=== PATIENT | female | born 1950 | race African-American/Black ===

== ENCOUNTER 2017-10-07 16:13 | Emergency (ER) | payer MEDICARE, MEDICAID ==
[~2017-10-07] VITALS: Ht 160 cm; Wt 82.6 kg
[~2017-10-07 16:13] MED LIST: AMLODIPINE BESYL5 MG PO; ASPIRIN81 M2 PO; ASPRIMOX 325 M325 MG; CLONAZEPAM 0.50.5 M1; DOXYCYCLINE 10100 MG PO; HUMALOG100 UNIT/1 SQ; HYDROXYZINE HCL25 M1 PO; KLOR-CON 1010 MEQ PO; LANTUS SUBQ; LASIX 20 MG TAB20 MG PO; LISINOPRIL20 MG PO; LYRICA 75 MG CA75 MG PO; MELOXICAM15 MG PO; METFORMIN HCL500 MG PO; NAMENDA 10 MG T10 MG PO; OXYCODONE HCL-1 EAC1 PO; PLAVIX 75 MG TA75 M1 PO; PREDNISONE 20 M20 M1 PO; ZANAFLEX4 MG PO; ZOCOR20 MG PO
[2017-10-07] MEDS ORDERED: LEVEMIR SUBQ (16:29)
[2017-10-07] MEDS ORDERED: ZOCOR20 MG PO (16:29)
[2017-10-07] MEDS ORDERED: COZAAR 50 MG TA50 M2 PO (16:30)
[2017-10-07] MEDS ORDERED: IRON325 PO (16:31)
[2017-10-07] MEDS ORDERED: AMLODIPINE BESYL5 MG PO (16:31)
[2017-10-07] MEDS ORDERED: FLONASE 0.05%50 MCG NASAL (16:31)
[2017-10-07 17:38] LABS: URINE BILIRUBIN NEGATIVE (Negative); URINE BLOOD NEGATIVE (Negative); URINE CLARITY CLEAR; URINE COLOR YELLOW; URINE GLUCOSE-RANDOM 1+ (Negative); URINE KETONES NEGATIVE (Negative); URINE LEUKOCYTES-REFLEX NEGATIVE (Negative); URINE NITRITE-REFLEX NEGATIVE (Negative); URINE PROTEIN NEGATIVE (Negative); URINE SPECIFIC GRAVITY 1.025 (1.005-1.030); URINE UROBILINOGEN 0.2 E.U./dl (0.2-1.0)
[2017-10-07 17:54] LABS: ABSOLUTE EOSINOPHILS 0.1 thou/uL (0.0-0.7); ABSOLUTE LYMPHOCYTES 1.4 thou/uL (0.8-5.3); ABSOLUTE MONOCYTES 0.4 thou/uL (0.0-1.2); ABSOLUTE NEUTROPHILS 3.8 thou/uL (1.6-8.1); BASOPHILS 0.4 %; EOSINOPHILS 1.1 %; HEMATOCRIT 33.4 % (37.0-47.0); HEMOGLOBIN 11.3 gm/dL (12.0-15.0); LYMPHOCYTES 24.5 %; MCH 32.3 pg (26.0-34.0); MCV 95.1 fL (80.0-100.0); MONOCYTES 7.1 %; MPV 8.5 fl. (7.2-11.1); NUCLEATED RBCS 0 /100WBC; PLATELET COUNT* 199 thou/uL (150-400); POLYS 66.9 %; RBC 3.51 mil/uL (4.20-5.00); RDW-CV 12.2 % (10.5-14.5); WBC 5.7 thou/uL (4.0-11.0)
[2017-10-07 18:06] LABS: ANION GAP 4 mmol/L (7-16); BUN 12 mg/dL (7-18); CALCIUM 9.4 mg/dL (8.5-10.1); CHLORIDE 106 mmol/L (98-107); CO2 29 mmol/L (21-32); CREATININE 0.9 mg/dL (0.6-1.3); GLUCOSE 260 mg/dL (70-99); POTASSIUM 4.3 mmol/L (3.5-5.1); SODIUM 139 mmol/L (136-145)
[2017-10-07 18:11] LABS: ALBUMIN 3.5 g/dL (3.4-5.0); ALKALINE PHOSPHATASE 87 U/L (46-116); SGOT 19 U/L (15-37); SGPT 23 U/L (30-65); TOTAL BILIRUBIN 0.4 mg/dL (<0.1-1.0); TOTAL PROTEIN 7.3 g/dL (6.4-8.2); TROPONIN-I LEVEL <0.06 ng/mL (<0.06)
[2017-10-07 18:20] VITALS: BP 122/59
--- NOTE | 2017-10-08 14:31 | EKG ---
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 <ELECTRONICALLY SIGNED> By: Phil Samano MD, FAC 10/08/17 1431 1716 1716 Phil Samano MD, FAC /EPI
== END 2017-10-07 18:21 | disposition home or self-care (01) ==
LOC: M.ERS 16:13
PROVIDERS: Physician Assistant
DX: R10.9 Unspecified abdominal pain (principal); R53.1 Weakness; R07.9 Chest pain, unspecified; G89.29 Other chronic pain; M54.9 Dorsalgia, unspecified; I10 Essential (primary) hypertension; E11.9 Type 2 diabetes mellitus without complications; F32.9 Major depressive disorder, single episode, unspecified; F41.9 Anxiety disorder, unspecified; Z88.4 Allergy status to anesthetic agent; Z88.8 Allergy status to other drugs, medicaments and biological substances; Z79.4 Long term (current) use of insulin

== ENCOUNTER 2018-01-04 18:38 | Emergency (ER) | payer MEDICARE, MEDICAID ==
[~2018-01-04] VITALS: Ht 160 cm; Wt 80.7 kg
[~2018-01-04 18:38] MED LIST changes: +COZAAR 50 MG TA50 M2 PO; +FLONASE 0.05%50 MCG NASAL; +IRON325 PO; +LEVEMIR SUBQ
[2018-01-04] MEDS ORDERED: JARDIANCE10 MG PO (18:50)
[2018-01-04 18:59] LABS: ABSOLUTE EOSINOPHILS 0.1 thou/uL (0.0-0.7); ABSOLUTE LYMPHOCYTES 1.2 thou/uL (0.8-5.3); ABSOLUTE MONOCYTES 0.3 thou/uL (0.0-1.2); ABSOLUTE NEUTROPHILS 4.1 thou/uL (1.6-8.1); BASOPHILS 0.5 %; EOSINOPHILS 0.9 %; HEMATOCRIT 36.2 % (37.0-47.0); LYMPHOCYTES 21.5 %; MCH 31.4 pg (26.0-34.0); MCV 95.1 fL (80.0-100.0); MPV 8.5 fl. (7.2-11.1); NUCLEATED RBCS 0 /100WBC; PLATELET COUNT* 202 thou/uL (150-400); POLYS 71.1 %; RDW-CV 12.1 % (10.5-14.5); WBC 5.7 thou/uL (4.0-11.0)
[2018-01-04 19:07] LABS: ANION GAP 5 mmol/L (7-16); BUN 14 mg/dL (7-18); CALCIUM 8.6 mg/dL (8.5-10.1); CHLORIDE 106 mmol/L (98-107); CO2 28 mmol/L (21-32); CREATININE 1.4 mg/dL (0.6-1.3); GLUCOSE 273 mg/dL (70-99); POTASSIUM 4.1 mmol/L (3.5-5.1); SODIUM 139 mmol/L (136-145)
[2018-01-04 19:14] LABS: ALBUMIN 3.5 g/dL (3.4-5.0); ALKALINE PHOSPHATASE 73 U/L (46-116); SGOT 19 U/L (15-37); SGPT 22 U/L (30-65); TOTAL BILIRUBIN 0.8 mg/dL (<0.1-1.0); TOTAL PROTEIN 7.1 g/dL (6.4-8.2); TROPONIN-I LEVEL <0.06 ng/mL (<0.06)
[2018-01-04 19:35] LABS: URINE BILIRUBIN NEGATIVE (Negative); URINE BLOOD NEGATIVE (Negative); URINE CLARITY CLEAR; URINE COLOR YELLOW; URINE GLUCOSE-RANDOM 3+ (Negative); URINE KETONES NEGATIVE (Negative); URINE LEUKOCYTES-REFLEX NEGATIVE (Negative); URINE NITRITE-REFLEX NEGATIVE (Negative); URINE PROTEIN NEGATIVE (Negative); URINE UROBILINOGEN 0.2 E.U./dl (0.2-1.0)
[2018-01-04] MEDS ORDERED: PREDNISONE 20 M20 MG PO (20:29)
[2018-01-04 21:26] VITALS: BP 139/55
--- NOTE | 2018-01-05 11:37 | EKG ---
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: : 1950 Requested By: Sherry Fontana Order Number: [id number] MD: Phil Samano Measurements Intervals [place] Rate: 65 P: [place]: 168 QRS: 21 QRSD: 90 T: 195 QT: 405 QTc: 422 Interpretive Statements Atrial-paced complexes Anteroseptal infarct, old Abnormal T, consider ischemia, diffuse leads Compared to ECG 10/07/2017 17:16:27 Myocardial infarct finding now present Intraventricular conduction delay no longer present T-wave abnormality still present Possible ischemia still present Electronically Signed On 01-05-2018 11:37:18 CDT by Phil Samano [email or web address] <ELECTRONICALLY SIGNED> By: Phil Samano MD, FACC 01/05/18 1137 46 46 Phil Samano MD, FAC /EPI
== END 2018-01-04 21:27 | disposition home or self-care (01) ==
LOC: M.ERS 18:38
PROVIDERS: Nurse Practitioner Family
DX: R42 Dizziness and giddiness (principal); R51 Headache; I10 Essential (primary) hypertension; E11.9 Type 2 diabetes mellitus without complications; F41.9 Anxiety disorder, unspecified; G89.29 Other chronic pain; M54.9 Dorsalgia, unspecified; F32.9 Major depressive disorder, single episode, unspecified; Z88.8 Allergy status to other drugs, medicaments and biological substances

== ENCOUNTER 2018-08-19 23:11 | Observation (INO) | payer MEDICARE, MEDICAID ==
[~2018-08-19] VITALS: Ht 160 cm; Wt 76.7 kg
[~2018-08-19 23:11] MED LIST changes: +COZAAR 50 MG TA50 M1 PO; -COZAAR 50 MG TA50 M2 PO; -HUMALOG100 UNIT/1 SQ; +HUMALOG100 UNIT/1 SUBQ; +JARDIANCE10 MG PO; +NORVASC5 MG PO; +PREDNISONE 20 M20 MG PO
[2018-08-19 23:16] VITALS: BP 136/61
[2018-08-19 23:42] LABS: ABSOLUTE EOSINOPHILS 0.1 thou/uL (0.0-0.7); ABSOLUTE LYMPHOCYTES 1.6 thou/uL (0.8-5.3); ABSOLUTE MONOCYTES 0.4 thou/uL (0.0-1.2); ABSOLUTE NEUTROPHILS 3.1 thou/uL (1.6-8.1); BASOPHILS 0.5 %; EOSINOPHILS 1.9 %; HEMATOCRIT 29.9 % (37.0-47.0); HEMOGLOBIN 10.2 gm/dL (12.0-15.0); LYMPHOCYTES 30.2 %; MCH 32.3 pg (26.0-34.0); MCHC 34.3 g/dL (28.0-37.0); MCV 94.1 fL (80.0-100.0); MONOCYTES 8.1 %; MPV 8.2 fl. (7.2-11.1); NUCLEATED RBCS 0 /100WBC; PLATELET COUNT* 192 thou/uL (150-400); POLYS 59.3 %; RBC 3.18 mil/uL (4.20-5.00); RDW-CV 12.2 % (10.5-14.5); WBC 5.2 thou/uL (4.0-11.0)
[2018-08-19 23:50] LABS: ANION GAP 7 mmol/L (7-16); BUN 22 mg/dL (7-18); CALCIUM 8.5 mg/dL (8.5-10.1); CHLORIDE 107 mmol/L (98-107); CO2 27 mmol/L (21-32); CREATININE 2.1 mg/dL (0.6-1.3); GLUCOSE 159 mg/dL (70-99); POTASSIUM 4.9 mmol/L (3.5-5.1); SODIUM 141 mmol/L (136-145)
[2018-08-19] MEDS ORDERED: MIRALAX17 GM PO (23:51)
[2018-08-19] MEDS ORDERED: PERCOCET 10-321 EACH PO (23:52)
[2018-08-19] MEDS ORDERED: VITAMIN D32000 UNI1 PO (23:52)
[2018-08-19] MEDS ORDERED: HUMALOG KW100 UNIT/1 SUBQ (23:52)
[2018-08-19] MEDS ORDERED: PLAVIX 75 MG TA75 M1 PO (23:52)
[2018-08-19] MEDS ORDERED: XANAX 0.5 MG0.5 M1 PO (23:53)
[2018-08-20] VITALS (9 sets, daily range): BP systolic 101–137; BP diastolic 46–85
[2018-08-20] LABS: ALBUMIN 3.4 g/dL (3.4-5.0); ALKALINE PHOSPHATASE 68 U/L (46-116); SGOT 22 U/L (15-37); SGPT 21 U/L (30-65); TOTAL BILIRUBIN 0.5 mg/dL (<0.1-1.0); TOTAL PROTEIN 7.1 g/dL (6.4-8.2); TROPONIN-I LEVEL <0.06 ng/mL (<0.06)
--- NOTE | 2018-08-20 04:16 | NUR ---
RECEIVED REPORT FROM CLERICAL SUPERVISOR AND ASSUMED CARE OF PATIENT APPROX 0215. ADMISSION HISTORY AND ASSESSMENT COMPLETED CHARTED. VSS ON ROOM AIR. LEFT FOOT PEDAL PULSE PRESENT WITH DOPPLER. PATIENT STATES SHE HAS VASCULAR ISSUES WITH HX OF RIGHT LEG STENT AND BYPASS. SHE STATES SHE HAS APPT FOR VASCULAR SURGERY ON 08/28 BUT DOES NOT WANT TO HAVE THE SURGERY UNTIL ISSUES WITH HER BP AND RENAL FUNCTION IS RESOLVED. PATIENT DENIES BEING LIGHTHEADED AT THIS TIME. PATIENT EDUCATED ON FALL PRECAUTIONS AND PRECAUTIONS IMPLEMENTED. PATIENT HAS C/O BACK PAIN WHICH IS CHRONIC. ENCOURAGED REPOSITIONING AND RELAXATION TECHNIQUES AND IBUPROFEN. PATIENT REFUSED IBUPROFEN BECAUSE IT MAKES HER STOMACH UPSET. PHYSICIAN PAGED AND ORDERS OBTAINED FOR HOME DOSE OF OXYCODONE. PENDING PHARMACY VERIFICATION AT THIS TIME. WILL ADMINISTER ONCE IMPROVED. GOAL FOR THIS SHIFT IF BLOOD PRESSURE MAINTAINANCE, RELIEF OF BACK PAIN, AND REMAIN FREE OF FALLS. CALL LIGHT WITHIN REACH
[2018-08-20] MEDS ORDERED: IRON325 PO (04:45)
[2018-08-20] MEDS ORDERED: SYSTANE 0.3-0.1 EACH OPHTHALMIC (04:46)
[2018-08-20] MEDS ORDERED: BYDUREON P2 MG/0.65 SUBQ (04:47)
[2018-08-20] MEDS ORDERED: NAPROSYN500 MG PO (04:48)
[2018-08-20 08:03] LABS: URINE BILIRUBIN NEGATIVE (Negative); URINE BLOOD NEGATIVE (Negative); URINE CLARITY CLEAR; URINE COLOR YELLOW; URINE GLUCOSE-RANDOM 1+ (Negative); URINE KETONES NEGATIVE (Negative); URINE LEUKOCYTES-REFLEX NEGATIVE (Negative); URINE NITRITE-REFLEX NEGATIVE (Negative); URINE PROTEIN NEGATIVE (Negative); URINE SPECIFIC GRAVITY <= 1.005 (1.005-1.030); URINE UROBILINOGEN 0.2 E.U./dl (0.2-1.0)
--- NOTE | 2018-08-20 08:27 | NUR ---
ASSUMED CARE OF PT THIS AM AROUND 0715- RELEASE ENGINEER IN PLACE ORDERED, TRACING A-PACED- UPON ASSESSMENT PT NOTED TO BE RESTING IN BED, WATCHING TV- PT A&O X4- CONTINENT OF BOWEL AND BLADDER- SBA WITH TRANSFERS FOR SAFETY- COURSE LUNG SOUNDS, RESP EVEN AND UN-LABORED- VSS, O2 SAT 95% ON RA- ABD SOFT/ROUND/NON-TENDER, BS X4 QUADS- PT REPORTS LAST BM 08/19/18- IV NOTED TO LEFT AC INTACT, IVF INFUSSING PRESCIBED- GOOD PO INTAKE NOTED THIS AM WITH BREAKFAST, BS MONITORED; INSULIN PRESCIBED- PT DENIES ANY C/O PAIN/DISCOMFORT AT THIS TIME- CALL LIGHT AND PERSONAL BELONGINGS WITH IN REACH- HOURLY ROUNDS IN PLACE R/T SAFETY/NEEDS- ALL NEEDS MET AT THIS TIME-WCTM
[2018-08-20 09:43] LABS: CALCIUM 8.4 mg/dL (8.5-10.1); CREATININE 1.3 mg/dL (0.6-1.3); MAGNESIUM 2.1 mg/dL (1.8-2.4)
--- NOTE | 2018-08-20 13:21 | EKG ---
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: SERGIO : 1950 Requested By: Susanne De La Cruz Order Number: [id number] MD: Daryl Delarosa Measurements Intervals [place] Rate: 67 P: [place]: 116 QRS: 33 QRSD: 109 T: 220 QT: 441 QTc: 466 Interpretive Statements Atrial-paced complexes Nonspecific T abnormalities, diffuse leads Compared to ECG 01/04/2018 18:47:52 Myocardial infarct finding no longer present T-wave abnormality still present Electronically Signed On 08-20-2018 13:20:54 CDT by Daryl Delarosa [email or web address] <ELECTRONICALLY SIGNED> By: Daryl Delarosa MD, [facility] 08/20/18 1320 0002 0002 Daryl Delarosa MD, [facility] /EPI
--- NOTE | 2018-08-20 16:25 | NUR ---
PT CURRENTLY RESTING IN BED- CARPET RENOVATOR IN PLACE ORDERED, TRACING A-PACED- IV TO LEFT AC INTACT, IVF INFUSSING PRESCIBED- GOOD PO INTAKE NOTED THIS SHIFT WITH MEALS- BS MONITORED ORDERED, ADVANCED TO MODERATE DOSE SSI INDICATED THIS SHIFT- LOSARTAN AND NORVASC NOTED TO BE D/C'D THIS SHIFT- PT DENIES ANY C/O PAIN/DISCOMFORT AT THIS TIME- MAKES NEEDS KNOWN- ALL NEEDS MET AT THIS TIME-WCTM
--- NOTE | 2018-08-21 00:39 | NUR ---
PT EXPRESSED CONCERNS THAT HER LANTUS DOSE AT HOME IS 40 UNITS/DAY, SHE WAS GIVEN 30 UNITS LAST NIGHT AND REQUESTED THE DOSE BE CHANGED, THIS NURSE SPOKE WITH DR MCHUGH VIA TELEPHONE AND RECEIVED NEW ORDERS TO CHANGE LANTUS DOSE TO MATCH PTS HOME DOSE, CHANGES MADE TO MEDICATION RECONCILIATION WELL
[2018-08-21 04:00] VITALS: BP 122/58
[2018-08-21 04:25] LABS: CALCIUM 9.1 mg/dL (8.5-10.1); CREATININE 0.9 mg/dL (0.6-1.3); MAGNESIUM 2.1 mg/dL (1.8-2.4); POTASSIUM 4.3 mmol/L (3.5-5.1)
[2018-08-21 07:20] VITALS: BP 129/55
[2018-08-21] MEDS ORDERED: AZITHROMYCIN 2250 MG PO (10:20)
--- NOTE | 2018-08-21 10:40 | NUR ---
Pt is A&O. Resides at home alone. Active and independent. No DME. Hx of HH, does not recall with which agency. No hx of SNF. Goal is home at dc. Pt states that she thinks she will dc today. No needs anticipated.
[2018-08-21 11:34] VITALS: BP 143/76
[2018-08-21 12:27] VITALS: BP 143/76
== END 2018-08-21 12:54 | disposition home or self-care (01) ==
LOC: M.ERS 23:11 → M.2W 08-20 00:40 → M.TBA-ER 08-20 00:40 → M.2W 08-20 00:40
PROVIDERS: Emergency Medicine; Internal Medicine; ADMIT Internal Medicine
DX: I95.2 Hypotension due to drugs (principal); N17.0 Acute kidney failure with tubular necrosis; I12.9 Hypertensive chronic kidney disease with stage 1 through stage 4 chronic kidney disease, or unspecified chronic kidney disease; N18.3 Chronic kidney disease, stage 3 (moderate); E11.22 Type 2 diabetes mellitus with diabetic chronic kidney disease; I99.8 Other disorder of circulatory system; E11.51 Type 2 diabetes mellitus with diabetic peripheral angiopathy without gangrene; M54.9 Dorsalgia, unspecified; G89.29 Other chronic pain; F32.9 Major depressive disorder, single episode, unspecified; F41.1 Generalized anxiety disorder; Z95.0 Presence of cardiac pacemaker; Z79.4 Long term (current) use of insulin; Z98.51 Tubal ligation status; Z53.33 Arthroscopic surgical procedure converted to open procedure; Z98.890 Other specified postprocedural states; Z87.891 Personal history of nicotine dependence

== ENCOUNTER 2018-12-08 16:20 | Emergency (ER) | payer MEDICARE, MEDICAID ==
[~2018-12-08] VITALS: Ht 160 cm; Wt 73.5 kg
[~2018-12-08 16:20] MED LIST changes: +AZITHROMYCIN 2250 MG PO; +BYDUREON P2 MG/0.65 SUBQ; +HUMALOG KW100 UNIT/1 SUBQ; +MIRALAX17 GM PO; +NAPROSYN500 MG PO; +PERCOCET 10-321 EACH PO; +SYSTANE 0.3-0.1 EACH OPHTHALMIC; +VITAMIN D32000 UNI1 PO; +XANAX 0.5 MG0.5 M1 PO
[2018-12-08 17:08] LABS: ABSOLUTE EOSINOPHILS 0.1 thou/uL (0.0-0.7); ABSOLUTE LYMPHOCYTES 1.5 thou/uL (0.8-5.3); ABSOLUTE MONOCYTES 0.4 thou/uL (0.0-1.2); ABSOLUTE NEUTROPHILS 5.1 thou/uL (1.6-8.1); BASOPHILS 0.7 %; EOSINOPHILS 1.1 %; HEMATOCRIT 31.2 % (37.0-47.0); HEMOGLOBIN 10.4 gm/dL (12.0-15.0); LYMPHOCYTES 20.7 %; MCHC 33.5 g/dL (28.0-37.0); MCV 95.7 fL (80.0-100.0); MONOCYTES 6.3 %; MPV 8.3 fl. (7.2-11.1); NUCLEATED RBCS 0 /100WBC; PLATELET COUNT* 158 thou/uL (150-400); POLYS 71.2 %; RBC 3.26 mil/uL (4.20-5.00); RDW-CV 12.7 % (10.5-14.5); WBC 7.1 thou/uL (4.0-11.0)
[2018-12-08 17:18] LABS: ANION GAP 5 mmol/L (7-16); BUN 30 mg/dL (7-18); CALCIUM 8.3 mg/dL (8.5-10.1); CHLORIDE 107 mmol/L (98-107); CO2 29 mmol/L (21-32); CREATININE 1.5 mg/dL (0.6-1.3); GLUCOSE 127 mg/dL (70-99); POTASSIUM 4.4 mmol/L (3.5-5.1); SODIUM 141 mmol/L (136-145)
[2018-12-08 17:29] LABS: ALBUMIN 3.1 g/dL (3.4-5.0); ALKALINE PHOSPHATASE 73 U/L (46-116); LIPASE 442 U/L (73-393); NT-PRO BRAIN NAT PEPTIDE 173 pg/mL (<300); SGOT 20 U/L (15-37); SGPT 24 U/L (30-65); TOTAL BILIRUBIN 0.3 mg/dL (<0.1-1.0); TOTAL PROTEIN 6.4 g/dL (6.4-8.2); TROPONIN-I LEVEL <0.06 ng/mL (<0.06)
[2018-12-08 17:48] VITALS: BP 115/52
--- NOTE | 2018-12-09 14:54 | EKG ---
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: : 1950 Requested By: Narinder Berman Order Number: [id number] MD: Boyd Uribe Measurements Intervals [place] Rate: 65 P: [place]: 193 QRS: 14 QRSD: 93 T: 196 QT: 469 QTc: 488 Interpretive Statements Atrial-paced complexes LVH by voltage T-wave inversion lateral leads consider ischemia Borderline prolonged QT interval Compared to ECG 08/20/2018 00:02:05 Left ventricular hypertrophy now present Early repolarization now present T-wave abnormality no longer present Electronically Signed On 12-09-2018 14:54:22 CDT by Boyd Uribe [email or web address] <ELECTRONICALLY SIGNED> By: Boyd Uribe MD, FAC 12/09/18 1454 1712 1712 Boyd Uribe MD, [facility] /EPI
== END 2018-12-08 17:49 | disposition home or self-care (01) ==
LOC: M.ERS 16:20
PROVIDERS: Emergency Medicine
DX: R42 Dizziness and giddiness (principal); I10 Essential (primary) hypertension; E11.9 Type 2 diabetes mellitus without complications; F39 Unspecified mood [affective] disorder; F41.9 Anxiety disorder, unspecified; G89.29 Other chronic pain; Z95.0 Presence of cardiac pacemaker; Z98.890 Other specified postprocedural states; Z79.4 Long term (current) use of insulin; Z88.6 Allergy status to analgesic agent; Z88.5 Allergy status to narcotic agent

== ENCOUNTER 2019-01-28 14:37 | Inpatient (IN) | payer MEDICARE, MEDICAID ==
[~2019-01-28] VITALS: Ht 160 cm; Wt 73.5 kg
[2019-01-28 14:43] VITALS: BP 112/49
[2019-01-28 15:20] LABS: ABSOLUTE LYMPHOCYTES 0.6 thou/uL (0.8-5.3); ABSOLUTE MONOCYTES 0.4 thou/uL (0.0-1.2); ABSOLUTE NEUTROPHILS 4.4 thou/uL (1.6-8.1); BASOPHILS 0.2 %; EOSINOPHILS 0.2 %; HEMATOCRIT 32.7 % (37.0-47.0); HEMOGLOBIN 11.2 gm/dL (12.0-15.0); LYMPHOCYTES 10.6 %; MCH 32.3 pg (26.0-34.0); MCHC 34.2 g/dL (28.0-37.0); MCV 94.5 fL (80.0-100.0); MONOCYTES 7.2 %; MPV 8.7 fl. (7.2-11.1); NUCLEATED RBCS 0 /100WBC; PLATELET COUNT* 153 thou/uL (150-400); POLYS 81.8 %; RBC 3.46 mil/uL (4.20-5.00); RDW-CV 13.3 % (10.5-14.5); WBC 5.4 thou/uL (4.0-11.0)
[2019-01-28 15:24] LABS: INFLUENZA A ANTIGEN Negative (Negative); INFLUENZA B ANTIGEN Negative (Negative)
[2019-01-28 15:32] LABS: CALCIUM 8.6 mg/dL (8.5-10.1); CREATININE 1.4 mg/dL (0.6-1.3); POTASSIUM 3.8 mmol/L (3.5-5.1)
[2019-01-28 15:37] LABS: ALBUMIN 3.3 g/dL (3.4-5.0); TOTAL BILIRUBIN 1.3 mg/dL (<0.1-1.0); TOTAL PROTEIN 7.1 g/dL (6.4-8.2)
[2019-01-28 17:06] VITALS: BP 129/52
[2019-01-28 17:38] VITALS: BP 146/54
--- NOTE | 2019-01-28 17:45 | NUR ---
PT ADMITTED WITH PNEUMONIA. PT ON ROOM AIR. PT STB TO BATHROOM. LUNGS WHEEZY, HERAT RATE REGULAR, PULSES 2+ ALL EXTREMITIES. PT DENIES PAIN. COUGH CONGESTED NO SPUTUM AT THIS TIME. PT COLD, GAVE WARM BLANKET AND WORK ORDER TO MAKE ROOM WARMER. DINNER CALLED AND BROUGHT IN. GAVE MENU. FALL RISK PRECAUTIONS IN PLACE. HOURLY ROUNDING COMPLETED. WILL CONTINUE TO MONITOR.
--- NOTE | 2019-01-28 17:57 | NUR ---
PT REMAINED ALERT AND ORIENTED. PT RESTING IN ROOM. FALL RISK PRECAUTIONS IN PLACE. HOURLY ROUNDING COMPLETED. WILL CONTINUE TO MONITOR.
[2019-01-28 19:50] VITALS: BP 128/44
[2019-01-28 20:53] LABS: URINE BILIRUBIN NEGATIVE (Negative); URINE BLOOD NEGATIVE (Negative); URINE CLARITY CLEAR; URINE COLOR YELLOW; URINE GLUCOSE-RANDOM 1+ (Negative); URINE KETONES 1+ (Negative); URINE LEUKOCYTES NEGATIVE (Negative); URINE NITRITE NEGATIVE (Negative); URINE PROTEIN NEGATIVE (Negative); URINE SPECIFIC GRAVITY 1.025 (1.005-1.030); URINE UROBILINOGEN 0.2 E.U./dl (0.2-1.0)
--- NOTE | 2019-01-29 04:54 | NUR ---
VSS RA. MEDS GIVEN ORDERED. PERCOCET GIVEN FOR CHRONIC BACK PAIN PER PT REQUEST. IV FLUID RUNNING ORDERED. BREATHING TREATMENT Q4H. NO SPUTUM AT THIS TIME. SISTER AT BEDSIDE. WILL CONTINUE TO MONITOR.
[2019-01-29 08:40] VITALS: BP 132/57
--- NOTE | 2019-01-29 11:12 | EKG ---
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1950 Requested By: Carlos Hodge Order Number: [id number] MD: Mayo Morgan Measurements Intervals [place] Rate: 62 P: 3 [place]: 99 QRS: 34 QRSD: 144 T: 238 QT: 492 QTc: 500 Interpretive Statements sinus rhythm with short pr interval LVH with secondary repolarization abnormality Borderline prolonged QT interval Compared to ECG 12/08/2018 17:12:46 pac's no longer seen Electronically Signed On 01-29-2019 11:00:25 CDT by Mayo Morgan [email or web address] <ELECTRONICALLY SIGNED> By: Mayo Morgan MD, FACC 01/29/19 1100 1512 1512 Mayo Morgan MD, FACC /EPI
--- NOTE | 2019-01-29 14:30 | NUR ---
NURSING SAND SLINGER SPOKE WITH PT. SHE HAD MULTIPLE COMPLAINTS AND WANTED TRANSFER TO [facility]. OK'D CM TO START PROCESS. CALLED [facility] [phone]. GAVE HER INFORMATION. SHE SAID SINCE PT.REQUEST, THEY NEED TO SEND CLINICALS TO [facility] TO SEE IF THEY CAN ACCEPT AND HAVE BED AVAILABILITY. IF SO THEY WILL PUT THEIR AND IN TOUCH FOR P-P CONVERSATION. FAXED FACE SHEET,H&P,PROGRESS NOTES,IMAGING,LABS, AND CULTURES TO [phone]. [facility] AND AMBULANCE FORM STARTED.
--- NOTE | 2019-01-29 19:00 | NUR ---
PATIENT ALERT AND ORIENTED THRU SHIFT. STATES CHRONIC BACK PAIN 06/08, DENIES NEED FOR PAIN INTERVENTION. SISTER PRESENT IN THRU SHIFT. PATIENT ARGUMENTATIVE AT TIMES, COOPERATIVE W/ CARES. IV FLUIDS INFUSING W/O DIFF. PATIENT REQUESTS TO BE TRANSFERRED TO [facility], CASE MANAGEMENT NOTIFIED AND WORKING ON THE TRANSFER NEEDS. IV CATH SITE DRSG CHANGE DONE. PATIENT CURRENTLY RESTING IN BED, CALL LIGHT IN REACH. NO OTHER NEEDS VOICED AT THIS TIME. HRLY ROUNDS DONE. PATIENT REFUSING LUNCH AND SUPPER MEAL FROM DIETARY, ATE BOX MEAL. ~TJRN
[2019-01-29 21:00] VITALS: BP 135/55
--- NOTE | 2019-01-30 05:03 | NUR ---
Patient has been extremely arguementative all of this shift. She wanted a shower and wanted the temperature in the room increased. Maintenance was notified and he came by to check for sure that the patient wanted it increased because the temperture in the room was 75 we said yes that was what she wanted. The patient wanted her linens changed and asked for more shower gel and towels during her shower by way of sending her sister out to the nurses desk. She also was out at the desk after her shower stating that we had given her shaving cream instead of deodorant. None of us had given her deodorant or shaving cream but the CUSTOMER EXPERIENCE ANALYST did give her some deodorant and she began filming with deanna almonte stating we here at [facility] are dumb because we can't tell the difference between shaving cream or deodorant. We aske dher not to film us. All of these times she is not speaking kindly to us. Also after the shower she was concerned about her IV site, I did enter the room to listen at what was going on because she had been raising her voice to all of us and not speaking to any of us in a normal tone. Her IV did flush and have blood return, it was observed that the dressing was slightly loose. I did bring the IV kit in and we took the old tegaderm off and cleansed the site with cloraprep and pkaced another tegaderm on the site and taped it down. Also her nurse applied coban to secure it even more. She did also ask for her sister linens to be changed and towels for her sister to shower. This morning she wanted the temperture turned down in the room. I did come in and turn it down on the room temperature monitor. She stated that it didn''t work, I said that it did work. She said no it didn't that they had told her before that it didn't work. I said well let's see if it does work first if it doesn't cool down I can call the airplane pilot supervisor so he can call maintenance to see if they can turn it down in the room. She was yelling all this at me and I was camling telling her to wait and see if the temperature improved first. She also said ohh the person who told her that it didn't work on the wall was lying? I said no that was not what I was saying, maybe it just didn't get it where she wanted it to be. She said that they could remotely do it and I explained that the equipment maintenance technician was here last evening and he had done it on his way out of the building around 10 pm, which she argued was not the time she took her bath. I said that was an approximation b/c she was not my patient and I wasn't looking at the exact time. She did agree to wait and see if the temperature in the room improved. The next time she got upset over wanting a piece of paper this morning. Her nurse told her she would bring her one in a bit. I went in with the paper she was yelling at me to get the hell out of her room. I said I have your paper and she said she didn't want it anymore and tell the other nurse to shove it up her ass. She said get this out of my arm,pointing to the IV, she wa sgetting dressed. I said okay I would,was she leaving, she said yes, I said I have a paper I need you to sign that you are leaving against medical advice. I said I would be right back to remove the IV and have her sign my paper. When I reurned she had already called ED stating she needed someone to remove her IV. I explained I was looking for the paper for her to sign and I was trying to loosen the tape around her IV with alcohol wipes and I began reading the leaving against medical advice paper to her and she snapped me to watch what I was doing. I explained that I was trying to save her some time and that loosening the tape was not a difficult procedure. She got snappy again and said she wanted me to watch what I was doing. I explained I was watching what I was doing and proceeded to remove the IV and place a cotton ball and tape over the site. She said that she would not sign anything but she was leaving I called her nurse in the room to witness that she would not sign AMA papers. She was hateful and I told her she was rude. She said she wanted me to leave. I did give her a paper to fill out to request her medical records at a later date. She left the unit at 0509 with her sister,both were fully dressed in coats also. ED caleed that she was in the ED requesting a breathing treatment. I had told the airplane pilot supervisor that she had left AMA.
--- NOTE | 2019-01-30 05:50 | NUR ---
PT SO ARGUMENTITIVE ALL NIGHT, COMPLAINT ABOUT EVERYTHING, TRIED TO CAUSE A PROBLEM WITH EVERY EMPLOYEE IN THE UNIT. THEN PT HAD DECIDED TO LEAVE AMA. LEFT WITH SISTER AT 0509 WITH ALL HER BELONGINGS.
--- NOTE | 2019-01-30 07:48 | CON ---
[address] [address] CONSULTATION Name: BERNA BEAN Room: [address] IN ..#: [id number] Admission: 01/28/19 Attend Phys: Camilla Lam Discharge: 01/30/19 Date of : 52 Report #: [id number] THIS REPORT FOR: //name// CC: Patrizia Yanez DATE OF SERVICE: 01/29/2019 INFECTIOUS DISEASE CONSULTATION ATTENDING PHYSICIAN: Dr. Yanez. REASON FOR EVALUATION: Pneumonitis, possible immune deficiency. HISTORY OF PRESENT ILLNESS: Chart reviewed, patient examined. This is a 69-year-old woman with a history of chronic low back pain, hypertension, diabetes mellitus type 2, was admitted through the Emergency Room with complaints of intermittently productive cough, did have some chest-related discomfort associated with general malaise, fatigue. She did have at least one episode of fevers. Denied any gastrointestinal related complaints. She has had left lateral mid thoracic back pain over the course of last several weeks. ALLERGIES: LISTED TO AVASTIN, IBUPROFEN AND LIDOCAINE. CURRENT MEDICATIONS: Include clopidogrel, cefdinir, azithromycin, pregabalin, received ceftriaxone as well, insulin lispro, insulin glargine. PAST MEDICAL HISTORY: Diabetes mellitus type 2, insulin requiring; hypertension; has known arterial occlusive disease, lower extremity, previous stenting, anxiety, chronic pain syndrome, pacemaker and depression. SOCIAL HISTORY: Former smoker, occasional ethanol, no illicit drug use. FAMILY HISTORY: Noncontributory. REVIEW OF SYSTEMS: Otherwise, unremarkable 10-point review of systems. PHYSICAL EXAMINATION: GENERAL: She is pleasant, alert, cooperative, in mild distress, appears to be reasonably well nourished. VITAL SIGNS: Temperature 98.9, pulse 68, respirations 18, blood pressure 128/44. SKIN: Warm, dry. HEENT: Normocephalic. Extraocular muscles intact. NECK: Supple. LUNGS: [place] [address] CONSULTATION Name: BERNA BEAN Room: [address]#: [id number] Admission: 01/28/19 Attend Phys: Camilla Lam Discharge: 01/30/19 Date of : 52 Report #: [id number] HEART: Regular. ABDOMEN: Soft, nontender, nondistended. EXTREMITIES: No cyanosis. GENITOURINARY: Deferred. RECTAL: Deferred. LABORATORY DATA: Rapid Strep was negative. Initial CBC: White count of 5.4, H and H 11.2 and 32.7, platelets of 153. Absolute lymphocyte count of 600. Influenza antigen was negative. Troponin less than 0.06. Electrolytes: Sodium 140, potassium 3.8, chloride 103, bicarbonate is 27, anion gap of 10. BUN and creatinine 17 and 1.4, glucose of 139. Albumin 3.3, total protein is 7.1, lactic acid of 2.0. Chest x-ray, no evidence of acute cardiopulmonary findings. Blood culture 1 out of 2, thus far, gram-positive cocci. ASSESSMENT AND PLAN: Lower respiratory tract infection, possible gram-positive cocci, septicemia. Continue parenteral therapy with vancomycin. Go ahead and do CT of the chest excluding an occult process there. She has actually been ill for a number of weeks. Did discuss with the patient in detail and may well be a false positive. We will pursue leads as dictated. <ELECTRONICALLY SIGNED> By: Jamison Cadena MD 01/30/19 0748 1656 2037Jofrancisco Cadena MD /nt
--- NOTE | 2019-01-30 10:13 | NUR ---
[facility] TRANSFER TEAM CALLED AND SAID [facility] CAN ACCEPT PT. TOLD HER PT.LEFT AMA THIS AM.
== END 2019-01-30 05:09 | disposition left against medical advice (07) | DRG 178 ==
LOC: M.ERS 14:37 → M.TBA-ER 16:02 → M.ORTHSURG 16:02
PROVIDERS: Physician Assistant; ADMIT Internal Medicine
DX: J15.6 Pneumonia due to other Gram-negative bacteria (principal); J45.901 Unspecified asthma with (acute) exacerbation; E44.1 Mild protein-calorie malnutrition; M54.5 Low back pain; F41.9 Anxiety disorder, unspecified; G89.4 Chronic pain syndrome; F32.9 Major depressive disorder, single episode, unspecified; E78.00 Pure hypercholesterolemia, unspecified; E11.51 Type 2 diabetes mellitus with diabetic peripheral angiopathy without gangrene; D64.9 Anemia, unspecified; I12.9 Hypertensive chronic kidney disease with stage 1 through stage 4 chronic kidney disease, or unspecified chronic kidney disease; N18.3 Chronic kidney disease, stage 3 (moderate); E11.22 Type 2 diabetes mellitus with diabetic chronic kidney disease; Z53.29 Procedure and treatment not carried out because of patient's decision for other reasons; Z88.8 Allergy status to other drugs, medicaments and biological substances; Z79.899 Other long term (current) drug therapy; Z79.4 Long term (current) use of insulin; Z95.0 Presence of cardiac pacemaker; Z87.891 Personal history of nicotine dependence; Z95.820 Peripheral vascular angioplasty status with implants and grafts; Z82.49 Family history of ischemic heart disease and other diseases of the circulatory system; Z83.3 Family history of diabetes mellitus; Z82.5 Family history of asthma and other chronic lower respiratory diseases

== ENCOUNTER 2020-11-02 13:02 | Emergency (ER) | payer OTHER, MEDICAID ==
[~2020-11-02] VITALS: Ht 157.5 cm; Wt 69.4 kg
[2020-11-02 13:27] LABS: URINE BILIRUBIN NEGATIVE (Negative); URINE BLOOD NEGATIVE (Negative); URINE CLARITY CLEAR; URINE COLOR YELLOW; URINE GLUCOSE-RANDOM NEGATIVE (Negative); URINE KETONES NEGATIVE (Negative); URINE LEUKOCYTES-REFLEX TRACE (Negative); URINE NITRITE-REFLEX NEGATIVE (Negative); URINE PROTEIN NEGATIVE (Negative); URINE SPECIFIC GRAVITY 1.025 (1.005-1.030); URINE UROBILINOGEN 0.2 E.U./dl (0.2-1.0)
[2020-11-02 13:40] LABS: SQUAMOUS 0-3 Few /LPF (0-3)
[2020-11-02 13:41] LABS: BACTERIA-REFLEX 1-9 Few /HPF (None Seen); CASTS None Seen /LPF (None Seen); CRYSTALS None Seen /LPF (None Seen); URINE RBC 0-2 Rare /HPF (0-2); URINE WBC-REFLEX 0-5 Rare /HPF (0-5)
[2020-11-02] MEDS ORDERED: PREDNISONE 20 M20 M1 PO (13:55)
[2020-11-02 14:13] LABS: ABSOLUTE BASOPHILS 0.1 thou/uL (0.0-0.2); ABSOLUTE EOSINOPHILS 0.2 thou/uL (0.0-0.7); ABSOLUTE LYMPHOCYTES 1.9 thou/uL (0.8-5.3); ABSOLUTE MONOCYTES 0.5 thou/uL (0.0-1.2); ABSOLUTE NEUTROPHILS 5.3 thou/uL (1.6-8.1); BASOPHILS 0.7 %; EOSINOPHILS 2.7 %; HEMATOCRIT 32.7 % (37.0-47.0); HEMOGLOBIN 11.3 gm/dL (12.0-15.0); LYMPHOCYTES 23.7 %; MCH 32.9 pg (26.0-34.0); MCHC 34.5 g/dL (28.0-37.0); MCV 95.4 fL (80.0-100.0); MONOCYTES 6.5 %; MPV 8.8 fl. (7.2-11.1); NUCLEATED RBCS 0 /100WBC; PLATELET COUNT* 166 thou/uL (150-400); POLYS 66.4 %; RBC 3.43 mil/uL (4.20-5.00); RDW-CV 12.6 % (10.5-14.5)
[2020-11-02 14:21] LABS: CALCIUM 8.4 mg/dL (8.5-10.1); CREATININE 1.1 mg/dL (0.6-1.3); POTASSIUM 3.9 mmol/L (3.5-5.1)
[2020-11-02 14:26] LABS: ALBUMIN 3.9 g/dL (3.4-5.0); TOTAL BILIRUBIN 0.5 mg/dL (<0.1-1.0); TOTAL PROTEIN 7.2 g/dL (6.4-8.2)
[2020-11-02 16:06] VITALS: BP 136/64
== END 2020-11-02 16:08 | disposition home or self-care (01) ==
LOC: M.ERS 13:02
PROVIDERS: Family Medicine
DX: R22.0 Localized swelling, mass and lump, head (principal); T78.40XA Allergy, unspecified, initial encounter; G89.29 Other chronic pain; I10 Essential (primary) hypertension; E11.9 Type 2 diabetes mellitus without complications; Z88.8 Allergy status to other drugs, medicaments and biological substances; Z88.4 Allergy status to anesthetic agent; Z79.899 Other long term (current) drug therapy; Z95.0 Presence of cardiac pacemaker; Y92.89 Other specified places as the place of occurrence of the external cause

== ENCOUNTER → 2020-11-24 | Outpatient (CLI) | payer OTHER, MEDICAID | LOC: M.ULTRA 13:30 | PROVIDERS: ATTEND Internal Medicine | DX: I65.23 Occlusion and stenosis of bilateral carotid arteries (principal) ==